=== PATIENT | female | born 1995 | race Caucasian/White ===

== ENCOUNTER 2024-11-23 10:48 | Emergency (ER) | payer OTHER, SELFPAY ==
[2024-11-23 10:59] VITALS: BP 148/102
--- NOTE | 2024-11-23 11:00 | ED.GENMED ---
ED Provider Triage
<Demetrio Rashid PA-C - Last Filed: 11/23/24 11:02>
-
Patient seen by provider in Triage?: Seen in Triage
29-year-old female with history of hypothyroidism and remote history of hypertension not currently on medication for her hypertension presents with elevated blood pressure readings since yesterday including significant head pressure and dizziness.
She describes occasional lightheadedness. Blood pressure was 150/100 at home. She spoke with her provider network mgr who advised that she come here to check her thyroid level. Vital signs are stable
Initiated workup with labs including CBC CMP test and hCG. Patient describes significant pressure in her head with dizziness. CT of the head was ordered
Patient seen by healthcare provider at triage but warrants further assessment
History of Present Illness
<Demetrio Rashid PA-C - Last Filed: 11/23/24 11:02>
General
Chief Complaint: Fainting Sensation
Time Seen by Provider: 11/23/24 13:15
<Kristian Rodriguez MD - Last Filed: 11/23/24 19:01>
General
Source: patient
Exam Limitations: none
History of Present Illness
History of Present Illness:
29-year-old female sudden onset of vertigo yesterday with some lightheaded feeling. Checked her blood pressure which was elevated at home. Diastolic was in the 100 range. Previous history of hypertension and was on blood pressure medications for
a year however this was stopped over the last year as blood pressures improved. Baseline blood pressures in the 120s/130s over 80s to 90. Currently vertigo is resolved. Just has a head fullness. No severe headache no thunderclap headache no
vomiting no neurologic symptoms.
Past History
<Kristian Rodriguez MD - Last Filed: 11/23/24 19:01>
Past History
ED Past Medical History: Hypothyroidism and Psychiatric
ED Past Surgical History: Cholecystectomy, Tonsilectomy and Other (Thyroid surgery)
Social History
Living: with family
Employment: Employed
Review of Systems
<Kristian Rodriguez MD - Last Filed: 11/23/24 19:01>
Review of Systems
All Other Systems: Not applicable
Respiratory: Reports no symptoms
Cardiac: Denies chest pain
Neurological: Denies weakness or numbness
Phy Exam
<Kristian Rodriguez MD - Last Filed: 11/23/24 19:01>
Physical Exam
Physical Exam:
GENERAL: Alert and oriented in no apparent distress
EYE: Orbits normal. Extraocular muscles intact. No nystagmus
NECK: Supple, full thyroid scar
ENT: Pharynx without erythema. TMs clear
CARDIAC: Regular rate and rhythm without any obvious murmurs.
LUNGS: Clear breath sounds,normal
ABDOMEN: Soft, without focal tenderness or distention
NEUROLOGICAL: Alert and oriented , speech normal. Cranial nerves II through XII intact. Luhajb-ha-coha normal. Lower extremity strength normal.
SKIN: Warm and dry, no rash or lesion, no discoloration, skin intact.
MUSCULOSKELETAL: No edema,no deformity.Good color
PSYCH: Normal and appropriate interaction.
Course
<Demetrio Rashid PA-C - Last Filed: 11/23/24 11:02>
Orders/Labs/Results
Orders:
Orders
11/23/24 10:59
Electrocardiogram (*1) Urgent
Reason for Study: Shortness of Breath
CT Head W/o Iv Contrast Urgent
Comment:
Reason For Exam: headache, dizzy
EKG- Treatment ONCE
11/23/24 11:01
Test Result ONCE
11/23/24 11:08
Complete Blood Count/With Diff Urgent
Comprehensive Metabolic Panel Urgent
HCG, Serum Qualitative Screen Urgent
TSH Reflex To Free T4 Urgent
11/23/24 13:39
Urinalysis Reflex To Culture Urgent
Date Specimen was Collected: 11/23/24
Time Specimen was Collected: 13:20
Urine Microscopic Reflex Cult Urgent
Urine Culture Urgent
JIMBO Source: U
Specimen Description:
Date Specimen was Collected: 11/23/24
Time Specimen was Collected: 13:20
Abnormal Lab Results
11/23/24 11/23/24
11:08 13:39
Glucose 123 H mg/dl
(70-99)
Urine Nitrite (Reflex) Positive A
(Negative)
Urine Bacteria (Reflex) Many A
(Negative)
11/23/24 11:08
11/23/24 11:08
Vital Signs
Initial and Last Documented VS:
Initial Vital Signs
Temp Pulse Resp BP Pulse Ox
98.7 F 83 16 148/102 99
11/23/24 10:59 11/23/24 10:59 11/23/24 10:59 11/23/24 10:59 11/23/24 10:59
Last Documented Vital Signs
Temp Pulse Resp BP Pulse Ox
98.7 F 78 16 132/79 98
11/23/24 10:59 11/23/24 15:43 11/23/24 15:43 11/23/24 15:43 11/23/24 15:43
<Kristian Rodriguez MD - Last Filed: 11/23/24 19:01>
Orders/Labs/Results
Orders:
Orders
11/23/24 10:59
Electrocardiogram (*1) Urgent
Reason for Study: Shortness of Breath
CT Head W/o Iv Contrast Urgent
Comment:
Reason For Exam: headache, dizzy
EKG- Treatment ONCE
11/23/24 11:01
Test Result ONCE
11/23/24 11:08
Complete Blood Count/With Diff Urgent
Comprehensive Metabolic Panel Urgent
HCG, Serum Qualitative Screen Urgent
TSH Reflex To Free T4 Urgent
11/23/24 13:39
Urinalysis Reflex To Culture Urgent
Date Specimen was Collected: 11/23/24
Time Specimen was Collected: 13:20
Urine Microscopic Reflex Cult Urgent
Urine Culture Urgent
JIMBO Source: U
Specimen Description:
Date Specimen was Collected: 11/23/24
Time Specimen was Collected: 13:20
Abnormal Lab Results
11/23/24 11/23/24
11:08 13:39
Glucose 123 H mg/dl
(70-99)
Urine Nitrite (Reflex) Positive A
(Negative)
Urine Bacteria (Reflex) Many A
(Negative)
11/23/24 11:08
11/23/24 11:08
Vital Signs
Initial and Last Documented VS:
Initial Vital Signs
Temp Pulse Resp BP Pulse Ox
98.7 F 83 16 148/102 99
11/23/24 10:59 11/23/24 10:59 11/23/24 10:59 11/23/24 10:59 11/23/24 10:59
Last Documented Vital Signs
Temp Pulse Resp BP Pulse Ox
98.7 F 78 16 132/79 98
11/23/24 10:59 11/23/24 15:43 11/23/24 15:43 11/23/24 15:43 11/23/24 15:43
<Kristian Rodriguez MD - Last Filed: 11/23/24 19:01>
MDM/Problems Addressed
Differential Diagnosis Includes:
Patient describing relatively sudden vertigo. Mostly resolved. Mostly concerned with her blood pressure. Blood pressure mildly elevated here although not terribly off her baseline. Unlikely that this is the cause of her symptoms. Nothing to
support vascular issue or subarachnoid hemorrhage. TSH is stable. Patient asked about checking her urine. Not convinced this explains her symptoms but reasonable to check. Likely reassurance and outpatient observation
<Kristian Rodriguez MD - Last Filed: 11/23/24 19:01>
*Radiology
Radiology exam reviewed: radiology read reviewed (Negative head CT)
*Pulse Oximetry
Patient hypoxic: no
*EKG
Interpreted by ED Provider?: Yes
Interpretation: normal
Comparison EKG: no comparison EKG present
Heart Rate: 77
Rate: normal
Rhythm: sinus
[place]: normal axis
Interval: normal interval
QRS Pattern: normal QRS
Ischemia: no ischemia
*Critical Care Note
Total Time (30-74mins, 75-104mins- exclusive of procedures): Not Applicable
<Kristian Rodriguez MD - Last Filed: 11/23/24 19:01>
Update Note
Update Note:
Medically stable and nontoxic. Benign exam. Blood pressure improved. Possible UTI. Will cover with antibiotics to follow-up
ED Attending Note
<Demetrio Rashid PA-C - Last Filed: 11/23/24 11:02>
-
Portions of this chart may have been created with voice recognition software.� Occasional wrong word or��sound alike� substitutions may have occurred due to the inherent limitations of voice recognition software.
Discharge Plan
Departure
Patient Disposition: Home (Routine Discharge)
Date of Disposition: 11/23/24
Time of Disposition: 15:48
Patient with high blood pressure during this ER visit?: Yes
Discharge Problem:
Dizziness, Possible UTI
Instructions: Urinary tract infections in adults, Dizziness in adults - ED discharge instructions
Prescriptions:
New
cefdinir 300 mg capsule
300 mg PO BID 5 Days Qty: 10 0RF
No Action
citalopram 20 MG tablet
20 mg PO DAILY
levothyroxine 50 MCG tablet
50 mcg PO DAILY
midodrine 2.5 MG tablet
2.5 mg PO TID
Depo Injections
IM DIRECTED
Patient Comments:
every 12 weeks
Referrals:
Lenore Meyer DO [Family Provider] - Follow up in 2-3 days
Activity Restrictions/Additional Instructions:
Your prescription was sent to your pharmacy
Interventions
Interventions:
*Risk Screen - Suicide Last Done: 11/23/24 10:59
*Neglect/Abuse Screening Last Done: 11/23/24 10:59
*Nursing Disposition Last Done: 11/23/24 16:20
Discharge Date and Time
Discharge Date/Time: 11/23/24 16:19
Print Language: SOMALI
[2024-11-23 11:15] LABS: % Basophils 1.1 % (0-2); % Eosinophils 2.7 % (0-6); % Immature Granulocytes 0.3 % (0-0.5); % Lymphocytes 26.1 % (20.5-51.1); % Monocytes 6.5 % (1.7-9.3); % Neutrophils 63.3 % (42.2-75.2); Absolute Basophils 0.1 10^3/uL (0-0.2); Absolute Eosinophils 0.2 10^3/uL (0-0.7); Absolute Lymphocytes 1.8 10^3/uL (1.2-3.4); Absolute Monocytes 0.5 10^3/uL (0.1-0.6); Absolute Neutrophils 4.4 10^3/uL (1.4-6.5); Hematocrit 37.7 % (37.0-47.0); Hemoglobin 12.9 g/dL (12.0-16.0); Mean Corp Hgb Conc. 34.2 g/dL (33.0-37.0); Mean Corpuscular Hgb 28.4 pg (27.0-31.0); Mean Corpuscular Volume 82.9 fL (81.0-99.0); Mean Platelet Volume 9.9 fL (7.4-10.4); Nucleated Red Blood Cells % 0 %; Platelet Count 278 10^3/uL (130-400); Red Blood Cell Count 4.55 10^6/uL (4.20-5.40); Red Cell Dist. Width 13.7 % (11.5-14.5)
[2024-11-23 11:24] LABS: HCG, Serum Qualitative Screen Negative
[2024-11-23 11:27] LABS: ALT (SGPT) 18 U/L (0-35); AST (SGOT) 21 U/L (14-36); Albumin 4.5 g/dl (3.5-5.0); Alkaline Phosphatase 77 U/L (38-126); Blood Urea Nitrogen 8 mg/dl (7-17); Calcium 8.8 mg/dl (8.4-10.2); Carbon Dioxide 26 mmol/L (22-30); Chloride 102 mmol/L (98-107); Glucose 123 mg/dl (70-99); Potassium 4.3 mmol/L (3.5-5.1); Sodium 137 mmol/L (135-145); Total Bilirubin 0.5 mg/dl (0.2-1.3); Total Protein 7.2 g/dl (6.3-8.2); eGFR > 60.00
[2024-11-23 11:57] LABS: TSH Reflex To Free T4 2.39 uIU/ml (0.47-4.68)
[2024-11-23 13:46] LABS: Urine Albumin Negative (Neg - Trace); Urine Bilirubin Negative (Negative); Urine Character Clear (Clear); Urine Color Yellow; Urine Glucose Negative (Negative); Urine Ketone Negative (Negative); Urine Leukocyte Negative (Negative); Urine Nitrite Positive (Negative); Urine Occult Blood Negative (Negative); Urine Urobilinogen Negative (Neg - 1+)
[2024-11-23 14:52] LABS: Urine Bacteria Many (Negative); Urine Red Blood Cell 0-2 /HPF (0-2); Urine White Cell 0-2 /HPF (0-5)
[2024-11-23 15:43] VITALS: BP 132/79
== END 2024-11-23 16:19 | disposition home or self-care (01) ==
LOC: EMR 10:48
PROVIDERS: Physician Assistant; EMERGENCY PHYSICIAN Emergency Medicine; FAMILY PHYSICIAN Family Medicine
DX: R42 Dizziness and giddiness (principal); E03.9 Hypothyroidism, unspecified; I10 Essential (primary) hypertension; Z90.49 Acquired absence of other specified parts of digestive tract
CPT/HCPCS: 99284; 70450; 80053; 81003; 81015; 84443; 84703; 85025; 87077; 87086; 87186; 93005